=== PATIENT | female | born 1965 | race Hispanic/Latino ===

== ENCOUNTER 2018-07-08 08:31 | Day surgery (SDC) | payer BC ==
[2016-06-04 11:59] VITALS: BMI 40.1
[2018-07-08] MEDS ORDERED: Propofol 10 mg/ml Inj (20 ML) ONE ×2 (11:04→11:32)
[2018-07-08] MEDS ORDERED: Sodium Chloride 0.9% 1,000 ML IV SCH (12:00)
[2018-07-08 12:43] VITALS: BP 112/66; PULSE 73; RESP 18; TEMP 98.9; O2SAT 97
== END 2018-07-08 13:26 | disposition home or self-care (01) ==
LOC: ENDO 08:31
PROVIDERS: ATTEND Internal Medicine Gastroenterology
DX: K21.0 Gastro-esophageal reflux disease with esophagitis (principal); K29.50 Unspecified chronic gastritis without bleeding; K22.70 Barrett's esophagus without dysplasia; R10.13 Epigastric pain; I10 Essential (primary) hypertension; E03.9 Hypothyroidism, unspecified
CPT/HCPCS: 43239; 88305; 88312; 88342; J2001; J2704; J7030; J7040

== ENCOUNTER 2018-07-12 07:24 | Outpatient (CLI) | payer BC | END 2018-07-12 07:25 | disposition home or self-care (01) | LOC: RAD 07:24 ==

== ENCOUNTER 2018-08-06 07:55 | Outpatient (CLI) | payer BC | END 2018-08-06 07:56 | disposition home or self-care (01) | LOC: LAB 07:55 ==

== ENCOUNTER 2018-08-10 18:32 | Observation (INO) | payer BC ==
[2018-08-10 18:43] VITALS: BMI 41.9
[2018-08-10] MEDS ORDERED: Sodium Chloride 0.9% 1,000 ML IV STA ×2 (19:28→21:21)
--- NOTE | 2018-08-10 19:28 | ED PDOC ---
Arrival/HPI - General Chief Complaint: Weakness/Neurological Deficit Historian: Patient - History of Present Illness Narrative History of Present Illness (Text): 08/10/18 19:16 53 y/o female, pmh including htn/hld/hypothyroidism/asthma, allergic to codein e/benadryl/penicillin, c/o cough/wheezing x 2 weeks with rash x 2 days. Pt. stated that she has been having coughing on and off x 2 weeks, seeing her own beaming inspector from [facility] which she is on the nebulizer pump, stated that the coughing is not improving, been having shortness of breath and chest tightness with wheezing, no pleuritic pain, no recent long distance traveling, no control use. Pt. stated that she has itching hives on the whole body today, itching rash, allergic to "benadryl" specifically, no difficulty swallowing or eating, no change in vision, no other medical or psychological complaints. Past Medical History - Provider Review Nursing Documentation Reviewed: Yes - Infectious Disease Hx of Infectious Diseases: None - Tetanus Immunization Tetanus Immunization: Unknown - Reproductive Menopause: Yes - Cardiac Hx Cardiac Disorders: No - Pulmonary Hx Respiratory Disorders: No - Neurological Hx Neurological Disorder: No - HEENT Hx HEENT Disorder: No - Renal Hx Renal Disorder: No - Endocrine/Metabolic Hx Endocrine Disorders: Yes Hx Hypothyroidism: Yes - Hematological/Oncological Hx Blood Disorders: No Hx Blood Transfusions: No Hx Blood Transfusion Reaction: No - Integumentary Hx Dermatological Disorder: No - Musculoskeletal/Rheumatological Hx Musculoskeletal Disorders: Yes - Gastrointestinal Hx Gastrointestinal Disorders: Yes Hx Gastroesophageal Reflux: Yes - Genitourinary/Gynecological Hx Genitourinary Disorders: No - Psychiatric Hx Psychophysiologic Disorder: No Hx Emotional Abuse: No Hx Physical Abuse: No Hx Substance Use: No - Surgical History Hx Hysterectomy: Yes - Anesthesia Hx Anesthesia Reactions: Yes (NAUSEA) Hx Malignant Hyperthermia: No - Suicidal Assessment Feels Threatened In Home Enviroment: No Family/Social History - Physician Review Nursing Documentation Reviewed: Yes Family/Social History: Unknown Family HX Smoking Status: Former Smoker Hx Alcohol Use: No Hx Substance Use: No Hx Substance Use Treatment: No Allergies/Home Meds Allergies/Adverse Reactions: Allergies codeine Allergy (Verified 06/04/16 11:59) ITCHING diphenhydramine [From Benadryl] Allergy (Verified 08/10/18 18:43) RASH latex Allergy (Verified 08/10/18 18:43) RASH Penicillins Allergy (Verified 06/04/16 11:59) ITCHING Home Medications: Home Meds Medication Instructions Recorded Confirmed Levothyroxine [Synthroid] 0.112 mg PO DAILY 09/24/14 08/10/18 PARoxetine [Paxil] 30 mg PO DAILY 06/04/16 08/10/18 Acetaminophen [Tylenol] 325 mg PO PRN PRN 06/29/18 08/10/18 Losartan/Hydrochlorothiazide 1 each PO DAILY 06/29/18 08/10/18 [Losartan-Hctz 50-12.5 mg Tab] Omeprazole 40 mg PO DAILY 06/29/18 08/10/18 Pravastatin Sodium [Pravachol] 20 mg PO DAILY 06/29/18 08/10/18 Famotidine [Heartburn Prevention] 20 mg PO HS 07/08/18 08/10/18 Review of Systems - Review of Systems Constitutional: Fatigue, Fevers Eyes: absent: Vision Changes ENT: absent: Hearing Changes, Sore Throat, Rhinorrhea Respiratory: Cough, Sputum, Wheezing. absent: SOB Cardiovascular: absent: Chest Pain Gastrointestinal: absent: Abdominal Pain, Nausea, Vomiting Genitourinary Female: absent: Dysuria Skin: absent: Rash, Pruritis Neurological: absent: Headache, Dizziness, Focal Weakness, Gait Changes, Speech Changes, Facial Droop, Disequilibrium, Seizure Endocrine: absent: Diaphoresis, Polyuria Psychiatric: absent: Anxiety, Depression, Suicidal Ideation Physical Exam Vital Signs Reviewed: Yes Vital Signs Temp Pulse Resp BP Pulse Ox 08/10/18 18:44 100.5 F H 101 H 19 95/68 L 95 Temperature: Febrile Blood Pressure: Hypotensive Pulse: Tachycardic Respiratory Rate: Normal Appearance: Positive for: Well-Appearing, Non-Toxic, Comfortable Pain Distress: None Mental Status: Positive for: Alert and Oriented X 3 - Systems Exam Head: Present: Atraumatic, Normocephalic, Other (no facial bony tenderness or swelling. ). No: Tenderness, Contusion, Swelling, Ecchymosis, Abrasion, Laceration Pupils: Present: PERRL Extroacular Muscles: Present: EOMI Conjunctiva: Present: Normal Ears: Present: NORMAL TM, Normal Canal. No: Erythema Mouth: Present: Moist Mucous Membranes, Normal Lips, Normal Tounge, Normal Teeth Pharnyx: No: ERYTHEMA, EXUDATE, TONSILS ENLARGED, Uvular Deviation, Muffled/Hoarse Voice, Strider, Soft Palate/Uvular Edema Nose (External): Present: Atraumatic. No: Abrasion, Contusion, Laceration, Lesions Nose (Internal): Present: Normal Inspection, No Active Bleeding. No: Edematous, Septal Deviation, Septal Hematoma, Epistaxis Neck: Present: Normal Range of Motion, Trachea Midline. No: Meningeal Signs, MIDLINE TENDERNESS, Paraspinal Tenderness, Lymphadenopathy Respiratory/Chest: Present: Wheezes, Decreased Breath Sounds, Rhonchi. No: Respiratory Distress, Accessory Muscle Use, Rales, Retracting, Tachypneic, Tender to Palpation Cardiovascular: Present: Regular Rate and Rhythm, Normal S1, S2. No: Murmurs Abdomen: No: Tenderness, Distention, Peritoneal Signs Back: Present: Normal Inspection Upper Extremity: Present: Normal Inspection. No: Cyanosis, Edema Lower Extremity: Present: Normal Inspection. No: Edema Neurological: Present: GCS=15, CN II-XII Intact, Speech Normal, Motor Func Grossly Intact, Normal Cerebellar Funct, Gait Normal, Memory Normal Skin: Present: Warm, Dry, Rashes (Generalized urticarial rash noted on the inner thigh/bilateral elbow/chest/neck back region with no cellulitis or ulcers. ), Normal Color Psychiatric: Present: Alert, Oriented x 3, Normal Insight, Normal Concentration Medical Decision Making ED Course and Treatment: 08/10/18 19:40 Sepsis vs. Pneumonia vs. Influenza vs. Rash vs. 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 -Chest xray Linear atelectasis noted in the right lung base. Evidence of a hiatal hernia. Elevation of the right hemidiaphragm noted. This may indicate some right phrenic nerve paralysis. -Labs are non significant except K+ 3.4 (potassium chloride 20meq po ordered) -Mg is non significant -BNP with normal limit -Trop within normal limit -Rapid flu is positive for flu A, tamiflu ordered -ESR 32, mildly elevated, non specific. -UA ordered and no sample yet -Pt. feels cough/chest tightness resolved with duoneb, still feeling fatigue and tire -Her BP is still on the lower end side which her BP usually is around 120s/80s but her BP remainin 100s/80s -Pt. has failure of outpatient treatment, would need beaming inspector to evaluate her symptoms. 08/11/18 00:18 -I spoke to the night hospitalist Dr. David, discussed about the case/labs/radiology/vitals and course of the illness, agreed to admit this patient, due to her BP vs. her usual BP, will admit her to the remote tele. - RAD Interpretation Radiology Orders: EXAM: CR Chest, 1 View. CLINICAL HISTORY: COUGH X 2 WEEKS COMPARISON: None provided. FINDINGS: LUNGS: Linear atelectasis is noted in the right lung base. Otherwise, the lungs appear clear. PLEURAL SPACES: No evidence of pleural effusion or pneumothorax. Mild elevation of the right hemidiaphragm may indicate some right phrenic nerve paralysis. MEDIASTINUM: The cardiomediastinal silhouette is within normal limits. there is suggestion of a small hiatal hernia present. BONES: No aggressive appearing osseous lesion seen. IMPRESSION: 1. Linear atelectasis noted in the right lung base. 2. Evidence of a hiatal hernia. 3. Elevation of the right hemidiaphragm noted. This may indicate some right phrenic nerve paralysis. Electronically signed on Aug 10, 2018 10:24:39 PM EDT by: John Mendosa M.D., M.B.A., Certified By [employer] Trained MRI and CT Specialist Plate Glass Installer: Radiologist - PA / COLLISION MECHANIC / Resident Statement /DO has reviewed & agrees with the documentation as recorded. Disposition/Present on Arrival - Present on Arrival Any Indicators Present on Arrival: No History of DVT/PE: No History of Uncontrolled Diabetes: No Urinary Catheter: No History of Decub. Ulcer: No History Surgical Site Infection Following: None - Disposition Have Diagnosis and Disposition been Completed?: Yes Diagnosis: Failure of outpatient treatment, Influenza, Hypotension, Rash, Fatigue Disposition: HOSPITALIZED Disposition Time: 23:21 Patient Plan: Admission, Observation Condition: GUARDED
[2018-08-10] MEDS ORDERED: Albuterol-Ipratrop 3 mg / 0.5 (3 ml) UD IH SCH (19:30)
[2018-08-10 20:04] LABS: BASO # 0.01 K/mm3 (0.0-2.0); BASO % 0.2 % (0.0-3.0); EOS % 0.5 % (1.5-5.0); HEMOGLOBIN 13.1 g/dL (12.0-16.0); LYMPH # 0.9 (1.2-3.4); LYMPH % 14.5 % (22.0-35.0); MEAN CELL VOLUME 89.7 fl (80.0-105.0); MEAN CORPUSCULAR HEMOGLOBIN 29.8 pg (25.0-35.0); MEAN CORPUSCULAR HGB CONC 33.2 g/dl (31.0-37.0); MEAN PLATELET VOLUME 9.8 fl (7.0-11.0); MONO # 0.9 (0.1-0.6); MONO % 14.5 % (1.0-6.0); RBC 4.39 10^6/uL (3.5-6.1); RED CELL DISTRIBUTION WIDTH 13.9 % (11.5-14.5); WHITE BLOOD COUNT 6.1 10^3/uL (4.5-11.0)
[2018-08-10 20:25] LABS: B-TYPE NATRIURETIC PEPTIDE 165 pg/mL (0-450)
[2018-08-10 20:29] LABS: ALB/GLOB RATIO 1.2 (1.1-1.8); ALBUMIN 4.1 g/dL (3.0-4.8); ALT/SGPT 16 U/L (7-56); AST/SGOT 30 U/L (14-36); BLOOD UREA NITROGEN 15 mg/dL (7-21); CALCIUM 8.8 mg/dL (8.4-10.5); GFR NON-AFRICAN AMERICAN > 60; TROPONIN I < 0.01 ng/mL
[2018-08-10 22:53] LABS: URINE BILIRUBIN NEGATIVE (NEGATIVE); URINE BLOOD NEGATIVE (NEGATIVE); URINE GLUCOSE (UA) NEGATIVE (NEGATIVE); URINE LEUKOCYTE ESTERASE TRACE Leu/uL (NEGATIVE); URINE PROTEIN NEGATIVE mg/dL (<30 mg/dL); URINE UROBILINOGEN 0.2 E.U./dL (<1 E.U./dL)
[2018-08-10 22:56] LABS: URINE APPEARANCE CLEAR (CLEAR); URINE COLOR YELLOW (YELLOW)
[2018-08-10 22:58] LABS: URINE BACTERIA FEW /hpf
[2018-08-10] MEDS ORDERED: Potassium Chloride 20 mEq ER Tab PO STA (23:07)
[2018-08-10 23:50] VITALS: O2SAT 98
--- NOTE | 2018-08-11 01:18 | CP.PCM.HP ---
<Andi Ness - Last Filed: 08/11/18 02:29> History of Present Illness - History of Present Illness History of Present Illness: PGY-1 History and Physical for Dr[address] Lyle cc: worsening sob, dry cough Patient is a 53 year old obese female with past medical history of HTN, HLD, hypothyroidism, asthma presenting to the ED with worsening dry cough with associated shortness of breath for the past 2 weeks. She states that the cough has been on and off for the past 2 weeks, nonproductive. She went to see her project development engineer @ [facility] and was given a breo ellipta pump which she says did not alleviate her symptoms. She endorses subjective fevers and chills during this time as well, denies any recent illnesses/sick contacts/recent travel. Of note, she points out an eczematous, pruritic rash to her medial thighs bilaterally. When asked, she states she typically develops a rash like this one whenever she is ill. No headaches, dizziness, chest pain, palpitations, abdominal pain, nausea/vomiting/diarrhea, dysuria, or changes in stool. 12 pt ROS reviewed and otherwise negative. PMHx: HTN, HLD, hypothyroidism, asthma PSHx: hysterectomy Allergies: codeine, PCN--"itching"; benadryl, latex--rash Home Meds: reviewed Family Hx: unknown Social Hx: denies alcohol, tobacco, or illicit drug use. 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 PMD: Dr. Michelle Montiel Pulm: Dr. Lainez Present on Admission - Present on Admission Any Indicators Present on Admission: No Review of Systems - Review of Systems All systems: reviewed and no additional remarkable complaints except Review of Systems: as per HPI Past Patient History - Infectious Disease Hx of Infectious Diseases: None - Tetanus Immunizations Tetanus Immunization: Unknown - Past Social History Smoking Status: Former Smoker - CARDIAC Hx Cardiac Disorders: No - PULMONARY Hx Respiratory Disorders: No - NEUROLOGICAL Hx Neurological Disorder: No - HEENT Hx HEENT Problems: No - RENAL Hx Chronic Kidney Disease: No - ENDOCRINE/METABOLIC Hx Endocrine Disorders: Yes Hx Hypothyroidism: Yes - HEMATOLOGICAL/ONCOLOGICAL Hx Blood Disorders: No Hx Blood Transfusions: No Hx Blood Transfusion Reaction: No - INTEGUMENTARY Hx Dermatological Problems: No - MUSCULOSKELETAL/RHEUMATOLOGICAL Hx Musculoskeletal Disorders: Yes - GASTROINTESTINAL Hx Gastrointestinal Disorders: Yes Hx Gastroesophageal Reflux: Yes - GENITOURINARY/GYNECOLOGICAL Hx Genitourinary Disorders: No - PSYCHIATRIC Hx Psychophysiologic Disorder: No Hx Emotional Abuse: No Hx Physical Abuse: No Hx Substance Use: No - SURGICAL HISTORY Hx Hysterectomy: Yes - ANESTHESIA Hx Anesthesia Reactions: Yes (NAUSEA) Hx Malignant Hyperthermia: No Meds Allergies/Adverse Reactions: Allergies Allergy/AdvReac Type Severity Reaction Status Date / Time codeine Allergy ITCHING Verified 06/04/16 11:59 diphenhydramine Allergy RASH Verified 08/10/18 18:43 [From Benadryl] latex Allergy RASH Verified 08/10/18 18:43 Penicillins Allergy ITCHING Verified 06/04/16 11:59 Physical Exam - Constitutional Appears: Non-toxic, No Acute Distress - Head Exam Head Exam: ATRAUMATIC, NORMAL INSPECTION, NORMOCEPHALIC - Eye Exam Eye Exam: EOMI, Normal appearance, PERRL Pupil Exam: NORMAL ACCOMODATION - ENT Exam ENT Exam: Mucous Membranes Dry, Normal Exam - Neck Exam Neck exam: Positive for: Full Rom, Normal Inspection. Negative for: Lymphadenopathy, Tenderness - Respiratory Exam Respiratory Exam: Decreased Breath Sounds, Rhonchi. absent: Accessory Muscle Use, Rales, Respiratory Distress - Cardiovascular Exam Cardiovascular Exam: REGULAR RHYTHM, +S1, +S2 - GI/Abdominal Exam GI & Abdominal Exam: Normal Bowel Sounds, Soft. absent: Firm, Guarding, Rebound, Rigid, Tenderness Additional comments: obese - Extremities Exam Extremities exam: Positive for: normal capillary refill, pedal pulses present. Negative for: calf tenderness, pedal edema - Back Exam Back exam: NORMAL INSPECTION - Neurological Exam Neurological exam: Alert, CN II-XII Intact, Oriented x3 - Skin Skin Exam: Diaphoretic, Intact, Normal Color, Rash (eczematous rash, b/l medial thighs), Warm Results - Vital Signs Recent Vital Signs: Last Vital Signs Temp 99.1 F 08/10/18 21:41 Pulse 90 08/10/18 21:41 Resp 18 08/10/18 23:49 BP 101/60 08/10/18 23:49 Pulse Ox 98 08/10/18 23:49 - Labs Result Diagrams: 08/10/18 19:55 08/10/18 19:55 Labs: Laboratory Results - last 24 hr 0408/10/18 08/10/18 19:55 19:55 19:55 WBC 6.1 D RBC 4.39 Hgb 13.1 Hct 39.4 MCV 89.7 MCH 29.8 MCHC 33.2 RDW 13.9 Plt Count 618 H MPV 9.8 Neut % (Auto) 70.3 H Lymph % (Auto) 14.5 L Overton % (Auto) 14.5 H Eos % (Auto) 0.5 L Baso % (Auto) 0.2 Lymph # (Auto) 0.9 L Overton # (Auto) 0.9 H Eos # (Auto) 0.0 Baso # (Auto) 0.01 Absolute Neuts (auto) 4.27 ESR 32 H Sodium 138 Potassium 3.4 L Chloride 104 Carbon Dioxide 23 Anion Gap 14 BUN 15 Creatinine 0.7 Est GFR ( Amer) > 60 Est GFR (Non-Af Amer) > 60 Random Glucose 146 H Calcium 8.8 Magnesium 1.8 Total Bilirubin 0.6 AST 30 ALT 16 Alkaline Phosphatase 55 Troponin I < 0.01 NT-Pro-B Natriuret Pep 165 Total Protein 7.4 Albumin 4.1 Globulin 3.4 Albumin/Globulin Ratio 1.2 Urine Color Urine Appearance Urine pH Ur Specific [place] Urine Protein Urine Glucose (UA) Urine Ketones Urine Blood Urine Nitrate Urine Bilirubin Urine Urobilinogen Ur Leukocyte Esterase Urine RBC Urine WBC Ur Epithelial Cells Urine Bacteria Influenza Typ A,B (EIA) Pos for influenza a H 08/10/18 22:46 WBC RBC Hgb Hct MCV MCH MCHC RDW Plt Count MPV Neut % (Auto) Lymph % (Auto) Overton % (Auto) Eos % (Auto) Baso % (Auto) Lymph # (Auto) Overton # (Auto) Eos # (Auto) Baso # (Auto) Absolute Neuts (auto) ESR Sodium Potassium Chloride Carbon Dioxide Anion Gap BUN Creatinine Est GFR ( Amer) Est GFR (Non-Af Amer) Random Glucose Calcium Magnesium Total Bilirubin AST ALT Alkaline Phosphatase Troponin I NT-Pro-B Natriuret Pep Total Protein Albumin Globulin Albumin/Globulin Ratio Urine Color Yellow Urine Appearance Clear Urine pH 6.0 Ur Specific [place] 1.010 Urine Protein Negative Urine Glucose (UA) Negative Urine Ketones Negative Urine Blood Negative Urine Nitrate Negative Urine Bilirubin Negative Urine Urobilinogen 0.2 Ur Leukocyte Esterase Trace H Urine RBC None Urine WBC 2 - 5 Ur Epithelial Cells 6 - 8 H Urine Bacteria Few Influenza Typ A,B (EIA) Assessment & Plan - Assessment and Plan (Free Text) Assessment: 53 yo obese female with pmhx of HTN, HLD, hypothyroidism, asthma presenting to ED with worsening dry cough, sob. Found to be flu positive. Plan: Asthma exacerbation -likely 2/2 influenza -CXR: linear atelectasis of R lung base, elevation of R hemidiaphragm. This may indicate some right phrenic nerve paralysis. -s/p duoneb x 1, solumedrol 125 mg IV x1 in ED -albuterol 2.5 mg INH q6 prn -pulmicort 0.5 mg IH q12 shelton -solumedrol 20 mg IVP q8 shelton -may consider Pulm consult in AM Influenza -influenza A positive -isolation precautions -s/p Tamiflu 75 mg PO x1 in ED -Tamiflu 75 mg PO BID x 5 days -NS fluids @ 100cc/hr Dermatitis -eczematous rash to b/l medial thighs -s/p Atarax 25 mg PO x1, solumedrol 125 mg IV x1 in ED -solumedrol 20 mg IVP q8 -continue to monitor Hypokalemia -K 3.4 on admission -s/p Kdur 20 mEq in ED, continue to monitor and replete prn Hx of HTN -hypotensive on admission -s/p NS bolus in ED, continue to monitor -home meds held Hx of HLD -f/u lipid panel -Lipitor 10 mg PO HS Hx of Hypothyroidism -f/u TSH/free T4 -resume home synthroid PPx, Diet, Disposition -DVT ppx: scds, lovenox -GI ppx: protonix -Diet: HHD -PT on board Case discussed with Dr. Valdo Ness DO, PGY-1 <Juliette Lyle - Last Filed: 08/11/18 19:10> Results - Vital Signs Recent Vital Signs: Last Vital Signs Temp 98.8 F 08/11/18 06:00 Pulse 87 08/11/18 10:00 Resp 20 08/11/18 06:00 BP 116/77 08/11/18 06:00 Pulse Ox 98 08/11/18 01:29 - Labs Result Diagrams: 08/11/18 07:55 08/11/18 07:55 Labs: Laboratory Results - last 24 hr 08/10/18 08/10/18 08/10/18 19:55 19:55 19:55 WBC RBC Hgb Hct MCV MCH MCHC RDW Plt Count MPV Neut % (Auto) Lymph % (Auto) Overton % (Auto) Eos % (Auto) Baso % (Auto) Lymph # (Auto) Overton # (Auto) Eos # (Auto) Baso # (Auto) Absolute Neuts (auto) ESR Sodium 138 Potassium 3.4 L Chloride 104 Carbon Dioxide 23 Anion Gap 14 BUN 15 Creatinine 0.7 Est GFR ( Amer) > 60 Est GFR (Non-Af Amer) > 60 Random Glucose 146 H Hemoglobin A1c Calcium 8.8 Phosphorus Magnesium 1.8 Total Bilirubin 0.6 AST 30 ALT 16 Alkaline Phosphatase 55 Troponin I < 0.01 C-React Prot High Sens 11.57 H NT-Pro-B Natriuret Pep 165 Total Protein 7.4 Albumin 4.1 Globulin 3.4 Albumin/Globulin Ratio 1.2 Triglycerides Cholesterol LDL Cholesterol Direct HDL Cholesterol Free T4 TSH 3rd Generation Urine Color Urine Appearance Urine pH Ur Specific [place] Urine Protein Urine Glucose (UA) Urine Ketones Urine Blood Urine Nitrate Urine Bilirubin Urine Urobilinogen Ur Leukocyte Esterase Urine RBC Urine WBC Ur Epithelial Cells Urine Bacteria Influenza Typ A,B (EIA) Pos for influenza a H 08/10/18 08/10/18 08/11/18 19:55 22:46 07:55 WBC 6.1 D 5.4 RBC 4.39 4.31 Hgb 13.1 12.5 Hct 39.4 38.7 MCV 89.7 89.8 MCH 29.8 29.0 MCHC 33.2 32.3 RDW 13.9 13.8 Plt Count 618 H 581 H MPV 9.8 9.9 Neut % (Auto) 70.3 H 87.3 H Lymph % (Auto) 14.5 L 10.1 L Overton % (Auto) 14.5 H 2.4 Eos % (Auto) 0.5 L 0.0 L Baso % (Auto) 0.2 0.2 Lymph # (Auto) 0.9 L 0.6 L Overton # (Auto) 0.9 H 0.1 Eos # (Auto) 0.0 0.0 Baso # (Auto) 0.01 0.01 Absolute Neuts (auto) 4.27 4.75 ESR 32 H Sodium Potassium Chloride Carbon Dioxide Anion Gap BUN Creatinine Est GFR ( Amer) Est GFR (Non-Af Amer) Random Glucose Hemoglobin A1c Calcium Phosphorus Magnesium Total Bilirubin AST ALT Alkaline Phosphatase Troponin I C-React Prot High Sens NT-Pro-B Natriuret Pep Total Protein Albumin Globulin Albumin/Globulin Ratio Triglycerides Cholesterol LDL Cholesterol Direct HDL Cholesterol Free T4 TSH 3rd Generation Urine Color Yellow Urine Appearance Clear Urine pH 6.0 Ur Specific [place] 1.010 Urine Protein Negative Urine Glucose (UA) Negative Urine Ketones Negative Urine Blood Negative Urine Nitrate Negative Urine Bilirubin Negative Urine Urobilinogen 0.2 Ur Leukocyte Esterase Trace H Urine RBC None Urine WBC 2 - 5 Ur Epithelial Cells 6 - 8 H Urine Bacteria Few Influenza Typ A,B (EIA) 08/11/18 08/11/18 08/11/18 07:55 07:55 07:55 WBC RBC Hgb Hct MCV MCH MCHC RDW Plt Count MPV Neut % (Auto) Lymph % (Auto) Over[place] % (Auto) Eos % (Auto) Baso % (Auto) Lymph # (Auto) [place] # (Auto) Eos # (Auto) Baso # (Auto) Absolute Neuts (auto) ESR Sodium 142 Potassium 3.7 Chloride 109 H Carbon Dioxide 18 L Anion Gap 19 BUN 14 Creatinine 0.5 L Est GFR ( Amer) > 60 Est GFR (Non-Af Amer) > 60 Random Glucose 196 H Hemoglobin A1c 6.1 Calcium 8.1 L Phosphorus 2.1 L Magnesium 2.1 Total Bilirubin 0.4 AST 26 ALT 7 Alkaline Phosphatase 53 Troponin I C-React Prot High Sens NT-Pro-B Natriuret Pep Total Protein 7.4 Albumin 4.1 Globulin 3.3 Albumin/Globulin Ratio 1.2 Triglycerides 71 Cholesterol 158 LDL Cholesterol Direct 86 HDL Cholesterol 45 Free T4 1.43 TSH 3rd Generation 0.11 L Urine Color Urine Appearance Urine pH Ur Specific [place] Urine Protein Urine Glucose (UA) Urine Ketones Urine Blood Urine Nitrate Urine Bilirubin Urine Urobilinogen Ur Leukocyte Esterase Urine RBC Urine WBC Ur Epithelial Cells Urine Bacteria Influenza Typ A,B (EIA) Attending/Attestation - Attestation I have personally seen and examined this patient.: Yes I have fully participated in the care of the patient.: Yes I have reviewed all pertinent clinical information: Yes Notes (Text): 08/11/18 19:10 Seen and examined. Discussed with resident. A&P as above.
[2018-08-11] MEDS ORDERED: Sodium Chloride 0.9% 1,000 ML IV SCH (02:15)
[2018-08-11] MEDS ORDERED: Albuterol 0.083% Inhal Sol (2.5 mg/3 mL) UD INH PRN (02:17)
[2018-08-11] MEDS ORDERED: MethylPREDNISolone 40 mg Vial IVP SCH (06:00)
[2018-08-11] MEDS ORDERED: Levothyroxine 112 MCG TAB PO SCH (06:00)
[2018-08-11] MEDS ORDERED: Budesonide 0.5 mg/2 ml Inhal Susp UD IH SCH (08:00)
[2018-08-11] MEDS ORDERED: Arformoterol 15 mcg/2 ml Inh Sol IH SCH (08:00)
[2018-08-11 08:15] VITALS: BP 116/77; RESP 20; TEMP 98.8
[2018-08-11 08:33] LABS: BASO # 0.01 K/mm3 (0.0-2.0); BASO % 0.2 % (0.0-3.0); HEMOGLOBIN 12.5 g/dL (12.0-16.0); LYMPH # 0.6 (1.2-3.4); LYMPH % 10.1 % (22.0-35.0); MEAN CELL VOLUME 89.8 fl (80.0-105.0); MEAN CORPUSCULAR HGB CONC 32.3 g/dl (31.0-37.0); MEAN PLATELET VOLUME 9.9 fl (7.0-11.0); MONO # 0.1 (0.1-0.6); MONO % 2.4 % (1.0-6.0); RBC 4.31 10^6/uL (3.5-6.1); RED CELL DISTRIBUTION WIDTH 13.8 % (11.5-14.5); WHITE BLOOD COUNT 5.4 10^3/uL (4.5-11.0)
[2018-08-11 08:54] LABS: ALB/GLOB RATIO 1.2 (1.1-1.8); ALBUMIN 4.1 g/dL (3.0-4.8); ALT/SGPT 7 U/L (7-56); AST/SGOT 26 U/L (14-36); BLOOD UREA NITROGEN 14 mg/dL (7-21); CALCIUM 8.1 mg/dL (8.4-10.5); GFR NON-AFRICAN AMERICAN > 60; HDL CHOLESTEROL 45 mg/dL (29-60); LDL CHOLESTEROL 86 mg/dL (0-129)
[2018-08-11 08:57] LABS: FREE T4 1.43 ng/dL (0.78-2.19)
[2018-08-11] MEDS ORDERED: Potassium & Sodium Phosphate PO ONE (09:04)
--- NOTE | 2018-08-11 09:32 | CARD ---
APPROVED REPORT Date of service: 08/10/2018 EKG Measurement Heart [id number] <Conclusion> Normal sinus rhythm Low voltage QRS Possible Anterolateral infarct, age undetermined Abnormal ECG
[2018-08-11] MEDS ORDERED: Enoxaparin 40 mg Syringe SC SCH (10:00)
[2018-08-11] MEDS ORDERED: Pantoprazole 20 mg EC Tab PO ONE (11:34)
--- NOTE | 2018-08-11 12:17 | RAD ---
Date of service: 08/10/2018 HISTORY: cough x 2 weeks COMPARISON: 11/16/2017 TECHNIQUE: 1 view obtained. FINDINGS: LUNGS: Chronic elevation of the right hemidiaphragm. Minimal linear atelectasis. No focal consolidation PLEURA: No significant pleural effusion identified, no pneumothorax apparent. CARDIOVASCULAR: No aortic atherosclerotic calcification present. Normal cardiac size. No pulmonary vascular congestion. OSSEOUS STRUCTURES: No significant abnormalities. VISUALIZED UPPER ABDOMEN: Normal. OTHER FINDINGS: The report concurs with the preliminary [facility] report IMPRESSION: Chronic elevation of the right hemidiaphragm. Minimal linear atelectasis. No focal consolidation
[2018-08-11 12:28] VITALS: PULSE 87
--- NOTE | 2018-08-11 13:47 | CP.PCM.DIS ---
<RoderickchristenChristopher - Last Filed: 08/11/18 13:47> Provider - Provider Date of Admission: 08/11/18 00:17 Attending physician: Leah Chu MD Time Spent in preparation of Discharge (in minutes): 70 Diagnosis - Discharge Diagnosis (1) Influenza Status: Acute (2) Rash Status: Acute (3) Asthma Status: Chronic (4) Hypertension Status: Chronic (5) Hyperlipemia Status: Chronic (6) Hypothyroid Status: Chronic Hospital Course - Lab Results Lab Results: Most Recent Lab Values WBC 5.4 10^3/uL (4.5-11.0) 08/11/18 07:55 RBC 4.31 10^6/uL (3.5-6.1) 08/11/18 07:55 Hgb 12.5 g/dL (12.0-16.0) 08/11/18 07:55 Hct 38.7 % (36.0-48.0) 08/11/18 07:55 MCV 89.8 fl (80.0-105.0) 08/11/18 07:55 MCH 29.0 pg (25.0-35.0) 08/11/18 07:55 MCHC 32.3 g/dl (31.0-37.0) 08/11/18 07:55 RDW 13.8 % (11.5-14.5) 08/11/18 07:55 Plt Count 581 10^3/uL (120.0-450.0) H 08/11/18 07:55 MPV 9.9 fl (7.0-11.0) 08/11/18 07:55 Neut % (Auto) 87.3 % (50.0-68.0) H 08/11/18 07:55 Lymph % (Auto) 10.1 % (22.0-35.0) L 08/11/18 07:55 [place] % (Auto) 2.4 % (1.0-6.0) 08/11/18 07:55 Eos % (Auto) 0.0 % (1.5-5.0) L 08/11/18 07:55 Baso % (Auto) 0.2 % (0.0-3.0) 08/11/18 07:55 Lymph # (Auto) 0.6 (1.2-3.4) L 08/11/18 07:55 [place] # (Auto) 0.1 (0.1-0.6) 08/11/18 07:55 Eos # (Auto) 0.0 (0.0-0.7) 08/11/18 07:55 Baso # (Auto) 0.01 K/mm3 (0.0-2.0) 08/11/18 07:55 Absolute Neuts (auto) 4.75 (1.4-6.5) 08/11/18 07:55 ESR 32 mm/hr (0.0-20.0) H 08/10/18 19:55 Sodium 142 mmol/L (132-148) 08/11/18 07:55 Potassium 3.7 mmol/L (3.6-5.0) 08/11/18 07:55 Chloride 109 mmol/L (98-107) H 08/11/18 07:55 Carbon Dioxide 18 mmol/L (21-33) L 08/11/18 07:55 Anion Gap 19 (10-20) 08/11/18 07:55 BUN 14 mg/dL (7-21) 08/11/18 07:55 Creatinine 0.5 mg/dl (0.7-1.2) L 08/11/18 07:55 Est GFR ( Amer) > 60 08/11/18 07:55 Est GFR (Non-Af Amer) > 60 08/11/18 07:55 Random Glucose 196 mg/dL (70-110) H 08/11/18 07:55 Hemoglobin A1c 6.1 % (4.2-6.5) 08/11/18 07:55 Calcium 8.1 mg/dL (8.4-10.5) L 08/11/18 07:55 Phosphorus 2.1 mg/dL (2.5-4.5) L 08/11/18 07:55 Magnesium 2.1 mg/dL (1.7-2.2) 08/11/18 07:55 Total Bilirubin 0.4 mg/dL (0.2-1.3) 08/11/18 07:55 AST 26 U/L (14-36) 08/11/18 07:55 ALT 7 U/L (7-56) 08/11/18 07:55 Alkaline Phosphatase 53 U/L (38-126) 08/11/18 07:55 Troponin I < 0.01 ng/mL 08/10/18 19:55 C-React Prot High Sens 11.57 mg/L (1.00-3.00) H 08/10/18 19:55 NT-Pro-B Natriuret Pep 165 pg/mL (0-450) 08/10/18 19:55 Total Protein 7.4 g/dL (5.8-8.3) 08/11/18 07:55 Albumin 4.1 g/dL (3.0-4.8) 08/11/18 07:55 Globulin 3.3 gm/dL 08/11/18 07:55 Albumin/Globulin Ratio 1.2 (1.1-1.8) 08/11/18 07:55 Triglycerides 71 mg/dL (35-160) 08/11/18 07:55 Cholesterol 158 mg/dL (130-200) 08/11/18 07:55 LDL Cholesterol Direct 86 mg/dL (0-129) 08/11/18 07:55 HDL Cholesterol 45 mg/dL (29-60) 08/11/18 07:55 Free T4 1.43 ng/dL (0.78-2.19) 08/11/18 07:55 TSH 3rd Generation 0.11 mIU/mL (0.46-4.68) L 08/11/18 07:55 Urine Color Yellow (YELLOW) 08/10/18 22:46 Urine Appearance Clear (CLEAR) 08/10/18 22:46 Urine pH 6.0 (4.7-8.0) 08/10/18 22:46 Ur Specific [place] 1.010 (1.005-1.035) 08/10/18 22:46 Urine Protein Negative mg/dL (<30 mg/dL) 08/10/18 22:46 Urine Glucose (UA) Negative mg/dL (NEGATIVE) 08/10/18 22:46 Urine Ketones Negative mg/dL (NEGATIVE) 08/10/18 22:46 Urine Blood Negative (NEGATIVE) 08/10/18 22:46 Urine Nitrate Negative (NEGATIVE) 08/10/18 22:46 Urine Bilirubin Negative (NEGATIVE) 08/10/18 22:46 Urine Urobilinogen 0.2 E.U./dL (<1 E.U./dL) 08/10/18 22:46 Ur Leukocyte Esterase Trace Cici/uL (NEGATIVE) H 08/10/18 22:46 Urine RBC None /hpf (0-2) 08/10/18 22:46 Urine WBC 2 - 5 /hpf (0-6) 08/10/18 22:46 Ur Epithelial Cells 6 - 8 /hpf (0-5) H 08/10/18 22:46 Urine Bacteria Few /hpf (NONE) 08/10/18 22:46 Influenza Typ A,B (EIA) Pos for influenza a (NEGATIVE) H 08/10/18 19:55 - Hospital Course Hospital Course: Upon Admission: Patient is a 53 year old obese female with past medical history of HTN, HLD, hypothyroidism, asthma presenting to the ED with worsening dry cough with associated shortness of breath for the past 2 weeks. She states that the cough has been on and off for the past 2 weeks, nonproductive. She went to see her central sterile supply technician @ [facility] [place] and was given a breo ellipta pump which she says did not alleviate her symptoms. She endorses subjective fevers and chills during this time as well, denies any recent illnesses/sick contacts/recent travel. Of note, she points out an eczematous, pruritic rash to her medial thighs bilaterally. When asked, she states she typically develops a rash like this one whenever she is ill. No headaches, dizziness, chest pain, palpitations, abdomin al pain, nausea/vomiting/diarrhea, dysuria, or changes in stool. 12 pt ROS reviewed and otherwise negative. Patient was found to be febrile in the ED with a Tmax of 100.5. She was flu positive and admitted for flu and asthma exacerbation. Hospital Course: CXR showed chronic elevation of the right hemidiaphragm. minimal linear atelectasis. no focal consolidation. She was started on tamiflu. Patient remained afebrile without leukocytosis. She denied any wheezing or shortness of breath. Patient said her symptoms improved overnight. She was deemed stable for discharge to home. Upon Discharge: Patient was deemed stable for discharge to home with instructions to follow up with her primary care doctor. She was given prescription for total of 5 day course of tamiflu. Patient was instructed to avoid contact with others why symptomatic. She understood instructions and agreed. Discharge Exam - Head Exam Head Exam: ATRAUMATIC, NORMAL INSPECTION, NORMOCEPHALIC - Additional Findings Additional findings: - Constitutional Appears: Non-toxic, No Acute Distress - Head Exam Head Exam: ATRAUMATIC, NORMAL INSPECTION, NORMOCEPHALIC - Eye Exam Eye Exam: EOMI, Normal appearance, PERRL Pupil Exam: NORMAL ACCOMODATION - ENT Exam ENT Exam: Mucous Membranes Dry, Normal Exam - Neck Exam Neck exam: Positive for: Full Rom, Normal Inspection. Negative for: Lymphadenopathy, Tenderness - Respiratory Exam Respiratory Exam: Decreased Breath Sounds, Rhonchi. absent: Accessory Muscle Use, Rales, Respiratory Distress - Cardiovascular Exam Cardiovascular Exam: REGULAR RHYTHM, +S1, +S2 - GI/Abdominal Exam GI & Abdominal Exam: Normal Bowel Sounds, Soft. absent: Firm, Guarding, Rebound, Rigid, Tenderness Additional comments: obese - Extremities Exam Extremities exam: Positive for: normal capillary refill, pedal pulses present. Negative for: calf tenderness, pedal edema - Back Exam Back exam: NORMAL INSPECTION - Neurological Exam Neurological exam: Alert, CN II-XII Intact, Oriented x3 - Skin Skin Exam: Diaphoretic, Intact, Normal Color, Rash (eczematous rash, b/l medial thighs), Warm Discharge Plan - Discharge Medications Prescriptions: Albuterol 0.042% [Albuterol 0.042% Inhal Shreya (1.25mg/3ml) UD] 3 ml IH DAILY PRN #1 shreya PRN Reason: Shortness Of Breath Fluticasone/Umeclidin/Vilanter [Trelegy Ellipta 100-62.5-25] 1 each IH DAILY #1 blst.w.dev Guaifenesin [Mucinex] 600 mg PO BID #28 tab.er.12h Methylprednisolone [Medrol Dose Pack (21 tabs)] 4 mg PO DAILY #21 mg Oseltamivir Cap [Tamiflu Cap] 75 mg PO BID #8 capsule - Follow Up Plan Condition: GUARDED Disposition: HOME/ ROUTINE Instructions: Flu, Adult (DC), Urticaria (GEN), Acute Rash (DC), Acute Rash (GEN) Additional Instructions: While you have symptoms, avoid contact with others around you and wear a face mask. Avoid contact with infants. Take tamiflu twice a day for 4 more days to treat the flu. Take the steroids as directed for your asthma. Take your medications as prescribed. Please follow up with your primary care physician within 1 week. If symptoms worsen, return to the emergency department. Take care and be well. Referrals: Camille Tuttle MD [Staff Provider] - <Leah Chu - Last Filed: 08/11/18 17:20> Provider - Provider Date of Admission: 08/11/18 00:17 Attending physician: Leah Chu MD Hospital Course - Lab Results Lab Results: Most Recent Lab Values WBC 5.4 10^3/uL (4.5-11.0) 08/11/18 07:55 RBC 4.31 10^6/uL (3.5-6.1) 08/11/18 07:55 Hgb 12.5 g/dL (12.0-16.0) 08/11/18 07:55 Hct 38.7 % (36.0-48.0) 08/11/18 07:55 MCV 89.8 fl (80.0-105.0) 08/11/18 07:55 MCH 29.0 pg (25.0-35.0) 08/11/18 07:55 MCHC 32.3 g/dl (31.0-37.0) 08/11/18 07:55 RDW 13.8 % (11.5-14.5) 08/11/18 07:55 Plt Count 581 10^3/uL (120.0-450.0) H 08/11/18 07:55 MPV 9.9 fl (7.0-11.0) 08/11/18 07:55 Neut % (Auto) 87.3 % (50.0-68.0) H 08/11/18 07:55 Lymph % (Auto) 10.1 % (22.0-35.0) L 08/11/18 07:55 [place] % (Auto) 2.4 % (1.0-6.0) 08/11/18 07:55 Eos % (Auto) 0.0 % (1.5-5.0) L 08/11/18 07:55 Baso % (Auto) 0.2 % (0.0-3.0) 08/11/18 07:55 Lymph # (Auto) 0.6 (1.2-3.4) L 08/11/18 07:55 [place] # (Auto) 0.1 (0.1-0.6) 08/11/18 07:55 Eos # (Auto) 0.0 (0.0-0.7) 08/11/18 07:55 Baso # (Auto) 0.01 K/mm3 (0.0-2.0) 08/11/18 07:55 Absolute Neuts (auto) 4.75 (1.4-6.5) 08/11/18 07:55 ESR 32 mm/hr (0.0-20.0) H 08/10/18 19:55 Sodium 142 mmol/L (132-148) 08/11/18 07:55 Potassium 3.7 mmol/L (3.6-5.0) 08/11/18 07:55 Chloride 109 mmol/L (98-107) H 08/11/18 07:55 Carbon Dioxide 18 mmol/L (21-33) L 08/11/18 07:55 Anion Gap 19 (10-20) 08/11/18 07:55 BUN 14 mg/dL (7-21) 08/11/18 07:55 Creatinine 0.5 mg/dl (0.7-1.2) L 08/11/18 07:55 Est GFR ( Amer) > 60 08/11/18 07:55 Est GFR (Non-Af Amer) > 60 08/11/18 07:55 Random Glucose 196 mg/dL (70-110) H 08/11/18 07:55 Hemoglobin A1c 6.1 % (4.2-6.5) 08/11/18 07:55 Calcium 8.1 mg/dL (8.4-10.5) L 08/11/18 07:55 Phosphorus 2.1 mg/dL (2.5-4.5) L 08/11/18 07:55 Magnesium 2.1 mg/dL (1.7-2.2) 08/11/18 07:55 Total Bilirubin 0.4 mg/dL (0.2-1.3) 08/11/18 07:55 AST 26 U/L (14-36) 08/11/18 07:55 ALT 7 U/L (7-56) 08/11/18 07:55 Alkaline Phosphatase 53 U/L (38-126) 08/11/18 07:55 Troponin I < 0.01 ng/mL 08/10/18 19:55 C-React Prot High Sens 11.57 mg/L (1.00-3.00) H 08/10/18 19:55 NT-Pro-B Natriuret Pep 165 pg/mL (0-450) 08/10/18 19:55 Total Protein 7.4 g/dL (5.8-8.3) 08/11/18 07:55 Albumin 4.1 g/dL (3.0-4.8) 08/11/18 07:55 Globulin 3.3 gm/dL 08/11/18 07:55 Albumin/Globulin Ratio 1.2 (1.1-1.8) 08/11/18 07:55 Triglycerides 71 mg/dL (35-160) 08/11/18 07:55 Cholesterol 158 mg/dL (130-200) 08/11/18 07:55 LDL Cholesterol Direct 86 mg/dL (0-129) 08/11/18 07:55 HDL Cholesterol 45 mg/dL (29-60) 08/11/18 07:55 Free T4 1.43 ng/dL (0.78-2.19) 08/11/18 07:55 TSH 3rd Generation 0.11 mIU/mL (0.46-4.68) L 08/11/18 07:55 Urine Color Yellow (YELLOW) 08/10/18 22:46 Urine Appearance Clear (CLEAR) 08/10/18 22:46 Urine pH 6.0 (4.7-8.0) 08/10/18 22:46 Ur Specific [place] 1.010 (1.005-1.035) 08/10/18 22:46 Urine Protein Negative mg/dL (<30 mg/dL) 08/10/18 22:46 Urine Glucose (UA) Negative mg/dL (NEGATIVE) 08/10/18 22:46 Urine Ketones Negative mg/dL (NEGATIVE) 08/10/18 22:46 Urine Blood Negative (NEGATIVE) 08/10/18 22:46 Urine Nitrate Negative (NEGATIVE) 08/10/18 22:46 Urine Bilirubin Negative (NEGATIVE) 08/10/18 22:46 Urine Urobilinogen 0.2 E.U./dL (<1 E.U./dL) 08/10/18 22:46 Ur Leukocyte Esterase Trace Cici/uL (NEGATIVE) H 08/10/18 22:46 Urine RBC None /hpf (0-2) 08/10/18 22:46 Urine WBC 2 - 5 /hpf (0-6) 08/10/18 22:46 Ur Epithelial Cells 6 - 8 /hpf (0-5) H 08/10/18 22:46 Urine Bacteria Few /hpf (NONE) 08/10/18 22:46 Influenza Typ A,B (EIA) Pos for influenza a (NEGATIVE) H 08/10/18 19:55 Attending/Attestation - Attestation I have personally seen and examined this patient.: Yes I have fully participated in the care of the patient.: Yes I have reviewed all pertinent clinical information, including history, physical exam and plan: Yes Notes (Text): 08/11/18 17:16 Patient was seen and examined with medical center manager. 53 year old obese female with past medical history of HTN, HLD, hypothyroidism, mild intermittent asthma was admitted with flu and mild asthma exacerbation.Patient is feeling better todaay.She is afebrile.Lung sounds are clear.Patient is on room air and is ambulatory. Her blood pressure medications are on hold as patient blood pressure was running low here in hospital but she is totally asymptomatic. She has been advised to monitor blood pressure at home and keep record for PCP. Patient will be discharged home on 5 days course of Tamiflu and tapering dose of steroid. She will follow up with PCP Management plan was discussed in detail with patient. Education was provided.
== END 2018-08-11 17:19 | disposition home or self-care (01) ==
LOC: ED 18:32 → ERH 08-11 00:17 → 3RSO 08-11 02:16
PROVIDERS: ADMIT Internal Medicine; ATTEND Internal Medicine
DX: J11.1 Influenza due to unidentified influenza virus with other respiratory manifestations (principal); R21 Rash and other nonspecific skin eruption; J45.21 Mild intermittent asthma with (acute) exacerbation; I10 Essential (primary) hypertension; E78.5 Hyperlipidemia, unspecified; E66.9 Obesity, unspecified; E03.9 Hypothyroidism, unspecified; J98.11 Atelectasis; K21.9 Gastro-esophageal reflux disease without esophagitis; K44.9 Diaphragmatic hernia without obstruction or gangrene; L30.9 Dermatitis, unspecified; Z79.890 Hormone replacement therapy; Z87.891 Personal history of nicotine dependence; Z88.5 Allergy status to narcotic agent; Z88.8 Allergy status to other drugs, medicaments and biological substances; Z88.0 Allergy status to penicillin; Z90.710 Acquired absence of both cervix and uterus; Z68.41 Body mass index [BMI] 40.0-44.9, adult
CPT/HCPCS: 36415; 71045; 80053; 80061; 81001; 83036; 83735; 83880; 84100; 84439; 84443; 84484; 85025; 85651; 86140; 87040; 87086; 87804; 93005; 94640; 96361; 96372; 96374; 96375; 96376; 99285; G0378; J1650; J2920; J2930; J7030